=== PATIENT | female | born 1995 | race Caucasian/White ===

== ENCOUNTER → 2020-10-04 | Outpatient (CLI) | payer MEDICAID, OTHER ==
--- NOTE | 2020-10-08 09:28 | REP ---
INDICATION: F/U ANATOMY COMPARISON: None currently available. TECHNIQUE: Transabdominal obstetrical ultrasound with color Doppler evaluation. FINDINGS: Examination demonstrates a single live intrauterine in cephalic presentation. motion is identified by technologist. Placenta is noted posterior and grade 1 without evidence for placenta previa or abruption. Amniotic fluid volume is normal. Cervix measures 3.4 cm in length and appears closed.. Gestational age by LMP 24 weeks 4 days with JANELL 01/20/2021. Gestational age by current measurements 24 weeks 4 days with JANELL 01/20/2021. FHR equals 161 beats per minute. Estimated weight 666 grams (24thpercentile). Anatomical assessment demonstrates normal structures including cardiac ventricular outflow tracts. Small echogenic focus at the level of the ventricular septum may represent prominent chordae tendineae. IMPRESSION: Single live intrauterine in cephalic presentation demonstrating appropriate estimated weight and growth. Current anatomical assessment as described above. <Electronically signed by Jacob Shay > 10/08/20 [id number]
== END ==
LOC: M WHC 15:01
PROVIDERS: ATTEND Obstetrics & Gynecology
DX: Z36.9 Encounter for antenatal screening, unspecified (principal); Z3A.24 24 weeks gestation of pregnancy